=== PATIENT | female | born 1955 | race Caucasian/White ===

== ENCOUNTER → 2018-11-06 | Outpatient (CLI) | payer OTHER ==
[~2018-11-06] VITALS: Ht 160 cm; Wt 68.0 kg
[~2018-11-06] MED LIST: CLONAZEPAM2 MG PO; LISINOPRIL-HCT1 EAC1 PO; MEDROLDOSEPACK PO; MOBIC15 MG PO; OXYCODONE-ACET1 EACH PO; PRAVACHOL40 MG PO; QUETIAPINE FUM400 MG PO; UNICOMPLEX M TA1 TA1 PO; VITAMINC500 PO
--- NOTE | ~2018-11-06 | HPC ---
[facility] [address] [place] [address] PAIN MANAGEMENT CONSULTATION Name: MARIANO HEAD Room #: REG [facility].#: [id number] Admission: 11/06/18 Attend Phys: Lo Cohn MD Discharge: Date of : 57 Report #: [id number] THIS REPORT FOR: //name// CC: Lo Wheeler DO DATE OF SERVICE: 11/11/2018 CHIEF COMPLAINT: Back pain and left leg pain. HISTORY OF PRESENT ILLNESS: The patient is a 63-year-old female who has been referred to the pain clinic because of pain and discomfort involving her low back and pain radiating down her left side to her leg. The patient states she has had sciatic nerve pain in the past and this feels like a recurrence of that pain. She has had pain, which has waxed and waned over the past 2 years. Describes as a burning, hot pain on the lower portion of her back and that radiates down into her left leg with numbness, tingling and sensory changes. Pain is exacerbated by prolonged standing. Notes pain improves with change of position. The pain sometimes becomes problematic even at night and bothers her sleep. She describes it as continuous, steady, constant, burning, shooting, cramping, aching, gnawing, throbbing, pounding, stabbing with a very tender area. Rates it as a 10/10. The patient has not had back surgery. Denies any real changes to her bowel or bladder function. When the patient had this pain in the past it was about 12 years ago. She was told at that time that she had a bulging disk. At that time, she underwent an epidural steroid injection and noted improvement in her pain and discomfort. ALLERGIES: KEFLEX, CODEINE. CURRENT MEDICATIONS: Lisinopril 40 mg daily, Klonopin 2 mg t.i.d., pravastatin 40 mg, Seroquel, vitamin C, Unicomplex-M tablets, quetiapine 400 mg at bedtime, clonazepam 2 mg t.i.d., oxycodone 5/325 mg p.r.n., lisinopril/hydrochlorothiazide 20/12.5 mg. PAST MEDICAL HISTORY: Hypertension, colon problems, emotional problems. PAST SURGICAL HISTORY: Colon and uterus problems, in 1989. SOCIAL HISTORY: She is disabled, has not worked for the past 5-1/2 years. She is on disability. REVIEW OF SYSTEMS: Wears glasses, nausea and vomiting, frequent diarrhea, memory loss, nervousness, insomnia. LABORATORY DATA: MRI of the lumbar spine dated 04/30/2017: [address] [address] PAIN MANAGEMENT CONSULTATION Name: QING HEADErik Rivera Room #: REG [facility] M.R.#: [id number] Admission: 11/06/18 Attend Phys: Lo Cohn MD Discharge: Date of : 57 Report #: [id number] 1. L3-L4 normal disk height with mild circumferential disk bulge, which abuts the thecal sac anteriorly. There are bilateral foraminal components to the disk with mild bilateral facet and ligamentum flavum hypertrophy. The findings produce mild bilateral neural foraminal stenosis without significant central canal stenosis or nerve root compression identified. 2. L4-L5 normal disk height with mild circumferential disk bulge with which produced minimal flattening of the thecal sac anteriorly. Mild bilateral facet arthropathy without significant central canal stenosis. Neural foraminal stenosis or nerve root compression identified. 3. L5-S1 moderate disk height loss posteriorly with more mild disk space narrowing noted anteriorly at the L5-S1 level. Diffuse circumferential disk bulge is present, which abuts the thecal sac anteriorly with bilateral foraminal components to the disk bulge, which appeared to cause at least partial compression of the exiting L5 nerve roots bilaterally. Mild bilateral facet arthropathy is also noted. The findings in conjunction with the grade 1 anterolisthesis of L5 on S1 produced severe bilateral neural foraminal stenosis without significant central canal stenosis identified. PAIN CLINIC ASSESSMENT: 1. The patient is not being treated for osteoarthritis or rheumatoid arthritis. 2. Height 5 feet 3 inches, weight 150 pounds, BMI 26.6. 3. Vital Signs: Blood pressure 130/87, pulse 103, respiratory rate 16, room air saturation is 97%. 4. Pain intensity 10/10. 5. Fall risk. The patient has not fallen in the last 3 months. 6. Blood thinner: The patient is not on a blood thinning medication. 7. Hypertension. The patient has been treated for hypertension. 8. Opioid greater than 6 weeks. The patient has received medication from her previous physician. 9. Risk assessment tool. 10. Functional assessment tool. 11. Recreational drug use. The patient denies use of recreational drugs. 12. Tobacco: The patient smokes on occasion and has smoked less than 5 years, discussed the importance of smoking cessation. 13. Alcohol: The patient denies use of alcoholic beverages. PHYSICAL EXAMINATION: GENERAL: The patient is a well-developed, well-nourished white female. Appears her stated age. She is alert and oriented x 3. Her affect is appropriate. Speech is fluent. HEENT: Normocephalic, atraumatic. Extraocular eye muscles intact. Sclerae nonicteric. Mucous membranes are moist. The patient without adenopathy. LUNGS: Clear to auscultation. HEART: Regular rate. ABDOMEN: Nontender. Bowel sounds present. EXTREMITIES: Upper extremity muscle strength is judged to be 5/5 for the major [facility] [address] [place] [address] PAIN MANAGEMENT CONSULTATION Name: MARIANO HEAD Room #: REG [facility].#: [id number] Admission: 11/06/18 Attend Phys: Lo Cohn MD Discharge: Date of : 57 Report #: [id number] muscle groups in the upper extremity. The patient without significant scoliosis, kyphosis or lordosis. The patient has pain and discomfort, which radiates down into the posterior portion of her leg on the right with numbness, tingling, sensory changes and pain, which is consistent with sciatic nerve irritation. She has had this in the past. She was on the right in the past about 12 years ago. Now, it has become problematic in the left. She has MRI findings, which show pathology with nerve root abutment at L5 on the left as well as the right. She would like to proceed with an epidural steroid injection. IMPRESSION: 1. Hypertension. L5-S1/sciatic nerve root irritation. 2. Gastric/colon problems. 3. Emotional problems. RECOMMENDATIONS: We discussed treatment options with the patient. At this juncture, we will proceed with a conservative approach. The patient has been given a Medrol Dosepak to take in the interim. She will try this medication and note its efficacy. She has been using nonsteroidal anti-inflammatory medications over the counter. We will also try Medrol Dosepak. A script for these medications have been written. We will also petition the patient's insurance company in that she could undergo an epidural steroid injection to help curtail and decrease her suffering. We would like to thank you for letting us participate in her care. We hope she continues to improve. By: [id number] Lo Cohn MD /REINALDO
[2018-11-06 09:02] VITALS: BP 130/87
== END ==
LOC: PAIN 08:23
DX: M54.5 Low back pain (principal); G89.29 Other chronic pain; Z79.899 Other long term (current) drug therapy

== ENCOUNTER → 2018-11-20 | Outpatient (CLI) | payer OTHER ==
[~2018-11-20] VITALS: Ht 160 cm; Wt 71.0 kg
--- NOTE | ~2018-11-20 | HPC ---
[facility] [address] [place] [address] PAIN MANAGEMENT CONSULTATION Name: MARIANO HEAD Room #: REG [facility].#: [id number] Admission: 11/20/18 Attend Phys: Lo Cohn MD Discharge: Date of : 57 Report #: [id number] THIS REPORT FOR: //name// CC: Lo Wheeler DATE OF SERVICE: 11/20/2018 CHIEF COMPLAINT: Here for an epidural injection. HISTORY: The patient is a 63-year-old female who has been seen in the pain clinic because of pain and discomfort with pain that radiates down into her left side and into her leg. States that she has some sciatic pain. She has had pain similar to this in the past and noted improvement with epidural steroid injections. She is experiencing pain in the lower portion of her back that radiates down to the left leg with numbness, tingling and sensory changes. Notes that the pain is exacerbated with prolonged standing. Pain improves when she changes position. It has been problematic even at night and she finds it difficult to sleep. Rates her pain as a 10/10 today and has returned today for an epidural steroid injection. ALLERGIES: KEFLEX, CODEINE. MEDICATIONS: Lisinopril 40 mg, Klonopin 2 mg t.i.d., pravastatin 40 mg, Seroquel, vitamin C, Unicomplex-M tablets, quetiapine 400 mg at bedtime, clonazepam 2 mg t.i.d., oxycodone 5 mg p.o. q. 4-6 hours p.r.n., lisinopril/hydrochlorothiazide 20 mg/12.5 mg. PAIN CLINIC ASSESSMENT/PQRS: 1. The patient is not being treated for osteoarthritis or rheumatoid arthritis. 2. Height 5 feet 3 inches, weight 156 pounds, BMI is 27.7. 3. Vital signs: Blood pressure 124/83, pulse 104, respiratory rate 14, room air saturation 97%. 4. Pain intensity 09/09. 5. Fall risk. The patient has not fallen in the last 3 months. 6. Blood thinner. The patient is not on a blood thinning medication. 7. Hypertension. The patient has been treated for hypertension. 8. Opioids greater than 6 weeks. The patient receives her medication from one source. 9. Risk assessment tool, low for opioid use. 10. Functional assessment tool. 11. Recreational drug use. The patient denies use of recreational drugs. 12. Tobacco: The patient smokes 1-3 cigarettes per day. We discussed the benefits of smoking cessation with the patient. 13. Alcohol: The patient denies frequent use of alcoholic beverages. [address] [address] PAIN MANAGEMENT CONSULTATION Name: MARIANO HEAD [id number] Admission: 11/20/18 Attend Phys: Lo Cohn MD Discharge: Date of : 57 Report #: [id number] PHYSICAL EXAMINATION: GENERAL: The patient is a well-developed, well-nourished white female. Appears her stated age. She is alert and oriented x 3. Affect is appropriate. Speech is fluent. HEENT: Normocephalic, atraumatic. Extraocular eye muscles intact. Sclerae nonicteric. Mucous membranes are moist. NECK: Without adenopathy or JVD. LUNGS: Clear to auscultation. HEART: Regular rate. ABDOMEN: Nontender. Bowel sounds present. EXTREMITIES: Upper extremity muscle strength is judged to be 5/5 in the upper extremities. Deep tendon reflexes within normal limits. Lower extremity muscle strength judged to be 5/5 for the major muscle groups. The patient has some pain and discomfort in the lower portion of her back with pain radiating down into her L5-S1 nerve root area with signs of irritation along the left leg. The patient is without significant scoliosis, kyphosis or lordosis. IMPRESSION: 1. L5-S1 nerve root irritation with radiculopathy. 2. Hypertension. 3. Gastric/colon problems. 4. Emotional problems. RECOMMENDATIONS: We discussed treatment options with the patient. Risks and benefits of an epidural steroid injection were discussed. They include but are not limited to infection, worsening of pain, no improvement in pain, bleeding, worsening of discomfort with possibility of nerve root irritation and paralysis. The patient elects to proceed. PROCEDURE NOTE: The patient was placed in the prone position. She was assisted in getting on the examination table. A pillow was placed under the abdomen to bolster and improve positioning. A 0.25% bupivacaine was injected at the L5-S1 area. This area has already been sterilely prepped with Betadine and infiltrated with 1% lidocaine. A 17-gauge Tuohy with loss of resistance technique using a midline approach directed in the left paramedian approach was undertaken. Aspiration was negative. A total of 80 mg Depo-Medrol, 40 mg triamcinolone and 2 mL of 0.25% bupivacaine was infiltrated. The patient's pain decreased to 0 at the time of discharge. She remained in the pain clinic for an appropriate amount of time. She will follow up in the future as needed. We would like to thank you for letting us participate in her care. We hope she continues to improve. By: [id number] Lo Cohn MD /mariam
[2018-11-20 09:19] VITALS: BP 124/83
== END | disposition home or self-care (01) ==
LOC: PAIN 08:41
DX: M54.16 Radiculopathy, lumbar region (principal); G89.29 Other chronic pain; I10 Essential (primary) hypertension; K31.89 Other diseases of stomach and duodenum; F17.210 Nicotine dependence, cigarettes, uncomplicated; F98.9 Unspecified behavioral and emotional disorders with onset usually occurring in childhood and adolescence; Z88.8 Allergy status to other drugs, medicaments and biological substances; Z79.899 Other long term (current) drug therapy; Z79.891 Long term (current) use of opiate analgesic; Z98.890 Other specified postprocedural states

== ENCOUNTER → 2019-01-29 | Outpatient (CLI) | payer OTHER ==
[~2019-01-29] VITALS: Ht 160 cm; Wt 72.6 kg
[~2019-01-29] MED LIST changes: +GARLIC1 EACH PO; -OXYCODONE-ACET1 EACH PO; +OXYCODONE-APAP1 EAC6 PO; -QUETIAPINE FUM400 MG PO; +SEROQUEL XR 20200 MG PO
[2019-01-29 08:11] VITALS: BP 145/73
--- NOTE | 2019-01-29 08:21 | NUR ---
Pain Clinic Assessment: 1. History of Osteoarthritis: Not Applicable History of Rheumatoid Arthritis: Not Applicable 2. Height: 5 ft. 3 in. 160.0 cm. Weight: 160.0 lb. oz. 72.576 kg. Patient's BMI: 28.4 3. Vital Signs: BP: 145/73 Pulse: 102 Resp: 16 Temp: 02 Sat: 94 ECG Mon: 4. Pain Intensity: 10 5. Fall Risk: Dizziness: N Needs help standing or walking: N Fallen in the last 3 months: N Fall risk comments: 6. Patient on Blood Thinner: None 7. History of Hypertension: Y 8. Opioid Therapy greater than 6 weeks: Y Opiate Contract Signed: 9. Risk Assessment Tool Provided: 9-HIGH 10. Functional Assessment Tool: 70/70 11. Recreational Drug Use: Past greater than 3 mos Drug Type: Tobacco Use: Current Some Day Smoker Tobacco Type: Cigarettes Amount or Packs/day: 1 CIGARETT How Many Years: Alcohol Use: Past use Frequency: Quant:
--- NOTE | 2019-02-16 11:24 | HPC ---
[facility] [place] [address] PAIN MANAGEMENT CONSULTATION Name: SONIDOMARIANO M Room #: PRE [facility] M.R.#: [id number] Admission: ������������������ Attend Phys: Lo Cohn MD Discharge: ������������������ Date of : 57 Report #: [id number] THIS REPORT FOR: //name// CC: Lo Wheeler DATE OF SERVICE: 01/29/2019 CHIEF COMPLAINT: Low back pain is going down into the right buttocks and down to the right leg into the calf. HISTORY: The patient is a 63-year-old female who has been followed in the Pain Clinic in the past because of lumbar radiculopathy. She has undergone epidural steroid injections and gleaned benefits from these. She returns today indicating that she is having pain that is radiating down into her left and right leg. Notes some numbness and tingling as a result of this. Note some sensory changes. She has undergone epidural steroid injection in the past and gleaned benefits from it. She has returned today with a desire to undergo an epidural steroid injection. ALLERGIES: KEFLEX, CODEINE. CURRENT MEDICATIONS: Vitamin C 500 mg, total 1000 mg daily, multivitamins Unicomplex-M tablet, quetiapine 400 mg, 200 mg at bedtime, Prevacid 40 mg, clonazepam 2 mg t.i.d., oxycodone 5/325 p.r.n., lisinopril/hydrochlorothiazide 20/12.5. PAIN CLINIC ASSESSMENT/PQRS: 1. The patient is not being treated for osteoarthritis or rheumatoid arthritis. 2. Height 5 feet 3 inches, weight 160 pounds, BMI is 28.4. 3. Vital signs: Blood pressure 145/73, pulse 102, respiratory rate 16, room air saturation is 94. 4. Pain intensity, 10/10. 5. Fall risk. The patient has not fallen in the last 3 months. 6. Blood thinner. The patient is not on a blood thinning medication. 7. Hypertension. The patient is being treated for hypertension. 8. Opioids greater than 6 weeks. The patient is receiving opioid medication from one source. 9. Risk assessment tool, 9/high. 10. Functional assessment tool, 70/70. 11. Recreational drug use. The patient denies use of recreational drugs. 12. Tobacco: The patient currently smokes daily. We discussed the benefits of smoking cessation. 13. Alcohol: The patient has used alcoholic beverages in the past. PHYSICAL EXAMINATION: [facility] [address] [place] [address] PAIN MANAGEMENT CONSULTATION Name: SONIDOMARIANO M Room #: PRE [facility]#: [id number] Admission: ������������������ Attend Phys: Lo Cohn MD Discharge: ������������������ Date of : 57 Report #: [id number] GENERAL: The patient is a well-developed, well-nourished white female. Appears her stated age. She is alert and oriented x 3. Affect is appropriate. Speech is fluent. HEENT: Normocephalic, atraumatic. Extraocular eye muscles intact. Sclerae nonicteric. Mucous membranes are moist. NECK: Without adenopathy or JVD. LUNGS: Clear to auscultation. HEART: Regular rate. ABDOMEN: Nontender. Bowel sounds present. EXTREMITIES: Upper extremity muscle strength is judged to be 5/5 for the major muscle groups in the upper extremity. Reflexes are within normal limits. Lower extremity muscle strength is judged to be 5-/5 for the major muscle groups in the lower extremity. The patient is having pain and discomfort radiating down the L5-S1 nerve root area on the left as well as the right leg. The patient is without significant scoliosis, kyphosis or lordosis. IMPRESSION: 1. L5-S1 nerve root irritation with radiculopathy on the left as well as the right. 2. Hypertension. 3. Gastric/colon problems. 4. Emotional problems. RECOMMENDATIONS: We discussed treatment options with the patient. Risks and benefits of an epidural steroid injection were again discussed. The possible complication of the procedure continue to be possibility of infection, worsening pain, no improvement in pain, nerve damage and paralysis. Review of the patient's past x-ray shows significant pars defects. There is advanced spondylosis and a grade 2 anterolisthesis. We will have the patient undergo flexion and extension films. She has been sent to the Radiology Department. Radiology report dated, 01/29/2019 shows: Lumbar spine series, four views with flexion and extension. Comparison, none available. FINDINGS: The vertebral body heights are maintained. No compression fracture is seen. L5-S1 bilateral pars defects are present with a grade 2 anterolisthesis measuring 18 mm. There is complete or near complete loss of disk space with apposing endplate sclerosis. No motion abnormality is detected between flexion and extension. No obvious destructive bone lesions are seen. The other intervertebral disk spaces are relatively well preserved and maintained normal alignment. The facets are grossly unremarkable. IMPRESSION: L5-S1 bilateral pars defects with advanced spondylosis and grade 2 anterolisthesis. RECOMMENDATIONS: We will have the patient to return to the Pain Clinic. Possibility of an epidural steroid injection will be entertained should the [address] [place] [address] PAIN MANAGEMENT CONSULTATION Name: MARIANO HEAD Room #: [facility]#: [id number] Admission: ������������������ Attend Phys: Lo Cohn MD Discharge: ������������������ Date of : 57 Report #: [id number] patient elected to proceed. We would like to thank you for letting us participate in her care. We hope she continues to improve. ��������������������������������������������� <ELECTRONICALLY SIGNED> ���������������������������������������� By: Lo Cohn MD ��������������������������������������������� 02/16/19 [id number] Lo Cohn MD /nt
== END ==
LOC: PAIN 01-13 13:23
DX: M47.27 Other spondylosis with radiculopathy, lumbosacral region (principal); M43.16 Spondylolisthesis, lumbar region; I10 Essential (primary) hypertension; F98.9 Unspecified behavioral and emotional disorders with onset usually occurring in childhood and adolescence; K92.9 Disease of digestive system, unspecified; Z79.899 Other long term (current) drug therapy

== ENCOUNTER → 2019-02-17 | Outpatient (CLI) | payer OTHER ==
[~2019-02-17] VITALS: Ht 160 cm; Wt 73.3 kg
[2019-02-17 09:22] VITALS: BP 132/78
--- NOTE | 2019-02-17 09:23 | NUR ---
Pain Clinic Assessment: 1. History of Osteoarthritis: Not Applicable History of Rheumatoid Arthritis: Not Applicable 2. Height: 5 ft. 3 in. 160.0 cm. Weight: 161.6 lb. oz. 73.301 kg. Patient's BMI: 28.6 3. Vital Signs: BP: 132/78 Pulse: 111 Resp: 16 Temp: 02 Sat: 96 ECG Mon: 4. Pain Intensity: 10 5. Fall Risk: Dizziness: N Needs help standing or walking: N Fallen in the last 3 months: N Fall risk comments: 6. Patient on Blood Thinner: None 7. History of Hypertension: Y 8. Opioid Therapy greater than 6 weeks: Y Opiate Contract Signed: 9. Risk Assessment Tool Provided: 9-HIGH 10. Functional Assessment Tool: 70/70 11. Recreational Drug Use: Past greater than 3 mos Drug Type: Tobacco Use: Current Some Day Smoker Tobacco Type: Amount or Packs/day: How Many Years: Alcohol Use: Past use Frequency: Quant:
--- NOTE | 2019-02-24 08:28 | HPC ---
[facility] [place] [address] PAIN MANAGEMENT CONSULTATION Name: MARIANO HEAD Room #: REG [facility]..#: [id number] Admission: 02/17/19 ������������������ Attend Phys: Lo Cohn MD Discharge: ������������������ Date of : 57 Report #: [id number] THIS REPORT FOR: //name// CC: Lo Wheeler DATE OF SERVICE: 02/17/2019 CHIEF COMPLAINT: Pain in the low back area with pain down into the right leg. Left leg is better but still uncomfortable. HISTORY: The patient is a 63-year-old female who has been seen in the Pain Clinic because of lumbar radiculopathy. As you may recall, she has pain and discomfort in the lower portion of her back and has pain that radiates down into her legs. Pain in the left leg is less problematic today. Pain in the right leg continues to be problematic. The patient had an x-ray of her low back area. It shows grade 2 spondylolisthesis of L5 on S1. She does not have movement in the low back area with flexion and extension. She states that she is having some difficulty getting in and out of bed because of the pain. She has returned today with the desire to undergo another epidural steroid injection with the hope that her pain would improve. She said no complication from the past injection, did note some improvement, and would like to have more improvement. ALLERGIES: KEFLEX, CODEINE. CURRENT MEDICATIONS: Vitamin C 500 mg - a total of 1000 mg daily, multivitamins Unicomplex-M tablet, quetiapine 400 mg - 200 mg at bedtime, Prevacid 40 mg, clonazepam 2 mg t.i.d., oxycodone 5/325s p.r.n., lisinopril/hydrochlorothiazide 20/12.5. PAIN CLINIC ASSESSMENT/PQRS: 1. The patient is not being treated for osteoarthritis. She has some arthritic changes in her low back with grade 2 spondylolisthesis of the lumbar area. The patient is not being treated for rheumatoid arthritis. 2. Height 5 feet 3 inches, weight 161 pounds, BMI is 28.6. 3. Vital signs: Blood pressure 132/78, pulse 111, respiratory rate 16, room air saturation 96%. 4. Pain intensity: 09/09. 5. Fall risk: The patient has not fallen in the last 3 months. 6. Blood thinner: The patient is not on a blood thinning medication. 7. Hypertension: The patient is being treated for hypertension. 8. Opioids greater than 6 weeks: The patient is not on opioid medication on a long-term basis. 9. Risk assessment tool: High for opioid use. 10. Functional assessment tool: 70/70. 11. Recreational drug use: The patient denies use of recreational drugs. [address] [address] PAIN MANAGEMENT CONSULTATION Name: SONIDOMARIANO Room #: REG [facility].#: [id number] Admission: 02/17/19 ������������������ Attend Phys: Lo Cohn MD Discharge: ������������������ Date of : 57 Report #: [id number] 12. Tobacco: The patient denies use of tobacco. 13. Alcohol: The patient denies frequent use of alcoholic beverages. PHYSICAL EXAMINATION: GENERAL: The patient is a well-developed, well-nourished white female. She appears her stated age. She is alert and oriented x 3. She is nervous and appears somewhat fidgety. This was the same appearance that she had when we met her initially. HEENT: Normocephalic, atraumatic. Extraocular eye muscles intact. Sclerae nonicteric. Mucous membranes are moist. NECK: Without adenopathy or JVD. LUNGS: Clear to auscultation, without rhonchi. HEART: Regular rate. ABDOMEN: Nontender. Bowel sounds present. MUSCULOSKELETAL: Upper extremity muscle strength is judged to be 5/5 for the major muscle groups in the upper extremities. Reflexes are within normal limits. Lower extremity muscle strength is judged to be 4+/5 for the major muscle groups in the lower extremities. The patient goes from a sitting to a standing position using her hands. She does walk in a forward-leaning position. She complains of pain and discomfort in the lower portion of her back. She complains of pain and discomfort that is radiating down the L5-S1 dermatomal distribution on the right. She has less pain than she did on the left, which was problematic at the last visit. The patient is without significant scoliosis or kyphosis. ASSESSMENT: 1. L5-S1 nerve root irritation with radiculopathy on the left as well as on the right. 2. Hypertension. 3. Gastric/colon problems. 4. Emotional problems. RECOMMENDATIONS: We discussed treatment options with the patient. Risks and benefits of an epidural steroid injection were again reviewed. They include but are not limited to infection, worsening of pain, bleeding, nerve damage, spinal headache, paralysis. The patient elects to proceed. PROCEDURE NOTE: The patient was assisted in getting on the examination table in the procedure area. Her back was sterilely prepped with a Betadine solution. Fluoroscopy using anterior, posterior as well as lateral viewing were implemented. The patient's back was sterilely prepped at the L5-S1 interspace. A 25-gauge needle was then advanced into this area and localized using 0.25% bupivacaine. A 17-gauge Tuohy at the L5-S1 area was used and advanced into the epidural space. There was no CSF, heme or paresthesia. A total of 80 mg Depo-Medrol, 40 mg triamcinolone and 2 mL of 0.25% bupivacaine was injected. The patient's fluoroscopy time was 4 seconds. She remained in the Pain Clinic [address] [address] PAIN MANAGEMENT CONSULTATION Name: MARIANO HEAD Room #: REG CLI [facility]#: [id number] Admission: 02/17/19 ������������������ Attend Phys: Lo Cohn MD Discharge: ������������������ Date of : 57 Report #: [id number] for an appropriate amount of time. She will follow up in the future as needed. We would like to thank you for letting us participate in her care. We hope she continues to improve. ��������������������������������������������� <ELECTRONICALLY SIGNED> ���������������������������������������� By: Lo Cohn MD ��������������������������������������������� 02/24/19 0828 1757 0329 Lo Cohn MD /nt
== END | disposition home or self-care (01) ==
LOC: PAIN 01-08 10:28
DX: M54.16 Radiculopathy, lumbar region (principal); G89.29 Other chronic pain; I10 Essential (primary) hypertension; K92.9 Disease of digestive system, unspecified; F98.9 Unspecified behavioral and emotional disorders with onset usually occurring in childhood and adolescence; Z88.8 Allergy status to other drugs, medicaments and biological substances; Z79.899 Other long term (current) drug therapy; Z79.891 Long term (current) use of opiate analgesic; Z98.890 Other specified postprocedural states

== ENCOUNTER → 2019-08-25 | Outpatient (CLI) | payer OTHER ==
[~2019-08-25] VITALS: Ht 160 cm; Wt 65.1 kg
[~2019-08-25] MED LIST changes: +DEPAKOTE125 MG PO
[2019-08-25 08:23] VITALS: BP 135/75
--- NOTE | 2019-08-25 08:25 | NUR ---
Pain Clinic Assessment: 1. History of Osteoarthritis: Not Applicable History of Rheumatoid Arthritis: Not Applicable 2. Height: 5 ft. 3 in. 160.0 cm. Weight: 143.6 lb. oz. 65.136 kg. Patient's BMI: 25.4 3. Vital Signs: BP: 135/75 Pulse: 96 Resp: Temp: 02 Sat: 98 ECG Mon: 4. Pain Intensity: 10 5. Fall Risk: Dizziness: N Needs help standing or walking: N Fallen in the last 3 months: N Fall risk comments: 6. Patient on Blood Thinner: None 7. History of Hypertension: Y 8. Opioid Therapy greater than 6 weeks: Y Opiate Contract Signed: 9. Risk Assessment Tool Provided: 9-HIGH 10. Functional Assessment Tool: 70/70 11. Recreational Drug Use: Past greater than 3 mos Drug Type: Tobacco Use: Former Smoker Tobacco Type: Amount or Packs/day: How Many Years: Alcohol Use: Past use Frequency: Quant:
--- NOTE | 2019-08-27 15:10 | HPC ---
[facility] [address] [address] PAIN MANAGEMENT CONSULTATION Name: SONIDOMARIANO M [id number] Admission: 08/25/19 Attend Phys: Lo Cohn MD Discharge: Date of : 57 Report #: [id number] THIS REPORT FOR: //name// CC: Lo Wheeler DATE OF SERVICE: 08/25/2019 CHIEF COMPLAINT: "Has had a return of the pain down my right leg." HISTORY: The patient is a 63-year-old female who has been seen in the pain clinic because of lumbar radiculopathy. She has undergone epidural steroid injections in the past and gleaned benefits from these. She returns today indicating that her pain was doing reasonably well since the last injection in January of this year. She has noted a return of pain and discomfort in the lower portion of her back. Pain is radiating down into the left and right leg. Pain is most problematic in the right side. Notes that her leg "goes numb." She has been using Seroquel. States that the Seroquel seemed to be causing her sinus and mouth to be dry. She has been placed on a new medication. She thinks it is Depakote. She has used OxyContin sporadically to help with her pain control. She has undergone epidural steroid injections in the L5-S1 area. She does have grade 2 spondylolisthesis of L5 on S1. At this point, the patient feels that she might need additional treatment. We will consider an MRI of her low back area to evaluate the changes, which are occurring. She is having difficulty in doing activities of daily living because of the pain. It is infringing upon her daily life. ALLERGIES: KEFLEX, CODEINE. CURRENT MEDICATIONS: Vitamin C 500 mg total of 1000 mg daily, multivitamins, Unicomplex-M tablets, Prevacid 40 mg, clonazepam 2 mg t.i.d., oxycodone 5/325 p.r.n., lisinopril/hydrochlorothiazide 20/12.5, pravastatin 40 mg. The patient thinks she is taking Depakote to help with his mood stabilization. PAIN CLINIC ASSESSMENT AND PQRS: 1. The patient is not being treated for osteoarthritis. She does have some arthritic changes in her low back with grade 2 spondylolisthesis of the lumbar area. The patient is not being treated for rheumatoid arthritis. 2. Height 5 feet 3 inches, weight 143 pounds, BMI is 25. 3. Vital Signs: Blood pressure 135/70, pulse 96, respiratory rate 16, room air saturation is 98%. 4. Pain intensity, 10/10. 5. Fall risk. The patient has not fallen in the last 3 months. 6. Blood thinner. The patient is not on a blood thinning medication. 7. Hypertension. The patient [place] [address] PAIN MANAGEMENT CONSULTATION Name: MARIANO HEAD [id number] Admission: 08/25/19 Attend Phys: Lo Cohn MD Discharge: Date of : 57 Report #: [id number] 8. Opioids greater than 6 weeks. 9. Risk assessment tool, high for opioid use. 10. Functional assessment tool, 70/70. 11. Recreational drug use. The patient denies use of recreational drugs. 12. Tobacco. 13. Alcohol. The patient denies frequent use of alcoholic beverages. PHYSICAL EXAMINATION: GENERAL: The patient is a well-developed, well-nourished, white female. She appears somewhat nervous. This is similar to the nerve at this level we have seen in the past visits. HEENT: Normocephalic, atraumatic. Extraocular eye muscles intact. Sclerae nonicteric. Mucous membranes are moist. NECK: Without adenopathy or JVD. LUNGS: Clear to auscultation without rhonchi. HEART: Regular rate. ABDOMEN: Nontender. Bowel sounds present. MUSCULOSKELETAL: Upper extremity muscle strength judged to be 5/5 for the major muscle groups in the upper extremity. The patient has lower extremity muscle strength judged to be 4+/5 for the major muscle groups in the lower extremity. The patient complains of pain and discomfort on the right side. Notes that the pain radiates down to her right leg. Feels that the leg does experience some numbness. Has had left leg discomfort, but less problematic than the right. ASSESSMENT: 1. History of L5-S1 nerve root irritation with lumbar radiculopathy and grade 2 spondylolisthesis at L5-S1. 2. Hypertension. 3. Gastric/colon problems. 4. Emotional problems. RECOMMENDATIONS: We discussed treatment options with the patient. Possibility of an epidural steroid injection was discussed. We will have the patient consider an MRI of the lumbar spine. Hopefully, this will give us more information in regards to what is actually going on at this juncture. The patient will return to the pain clinic after the MRI with the possibility of undergoing an epidural steroid injection. She would like to have an information on her condition. We explained to the patient that she should go to the Medical Records Department. They will then provided her with medical record information, which she has sought. [address] [address] PAIN MANAGEMENT CONSULTATION Name: MARIANO HEAD Room #: REG [facility]..#: [id number] Admission: 08/25/19 Attend Phys: Lo Cohn MD Discharge: Date of : 57 Report #: [id number] We would like to thank you for letting us participate in her care. We hope she continues to improve. <ELECTRONICALLY SIGNED> By: Lo Cohn MD 08/27/19 1510 1850 0212 Lo Cohn MD /PMT
== END ==
LOC: PAIN 06:53
DX: M43.17 Spondylolisthesis, lumbosacral region (principal); M54.16 Radiculopathy, lumbar region; M79.604 Pain in right leg; I10 Essential (primary) hypertension

== ENCOUNTER → 2019-09-07 | Outpatient (CLI) | payer OTHER | LOC: MRI 08:54 | DX: M43.17 Spondylolisthesis, lumbosacral region (principal); M48.07 Spinal stenosis, lumbosacral region; M47.27 Other spondylosis with radiculopathy, lumbosacral region ==

== ENCOUNTER → 2019-09-10 | Outpatient (CLI) | payer OTHER ==
[~2019-09-10] VITALS: Ht 160 cm; Wt 65.2 kg
[2019-09-10 09:15] VITALS: BP 114/73
--- NOTE | 2019-09-10 09:16 | NUR ---
Pain Clinic Assessment: 1. History of Osteoarthritis: Not Applicable History of Rheumatoid Arthritis: Not Applicable 2. Height: 5 ft. 3 in. 160.0 cm. Weight: 143.8 lb. oz. 65.227 kg. Patient's BMI: 25.5 3. Vital Signs: BP: 114/73 Pulse: 71 Resp: 18 Temp: 02 Sat: 99 ECG Mon: 4. Pain Intensity: 10 5. Fall Risk: Dizziness: N Needs help standing or walking: N Fallen in the last 3 months: N Fall risk comments: 6. Patient on Blood Thinner: None 7. History of Hypertension: Y 8. Opioid Therapy greater than 6 weeks: Y Opiate Contract Signed: 9. Risk Assessment Tool Provided: 9-HIGH 10. Functional Assessment Tool: 70/70 11. Recreational Drug Use: Past greater than 3 mos Drug Type: Tobacco Use: Former Smoker Tobacco Type: Amount or Packs/day: How Many Years: Alcohol Use: Past use Frequency: Quant:
--- NOTE | 2019-09-22 09:44 | HPC ---
[facility] [address] [place] [address] PAIN MANAGEMENT CONSULTATION Name: MARIANO HEAD Room #: REG [facility]..#: [id number] Admission: 09/10/19 Attend Phys: Lo Cohn MD Discharge: Date of : 57 Report #: [id number] THIS REPORT FOR: //name// CC: Troy Wheeler DATE OF SERVICE: 09/10/2019 CHIEF COMPLAINT: Back and leg pain. HISTORY: The patient is a 63-year-old female who has been seen in the pain clinic because of lumbar radiculopathy. She continues to have pain, which radiates down into her legs. Right leg is most problematic. She does notice an improvement after the epidural steroid injection, but still has pain that continues to be problematic and makes activities of daily living difficult. States her leg continues to "go numb." Has used OxyContin on occasion to help control the pain. She has recently undergone an MRI. She has been found to have grade 2 spondylolisthesis of L5 on S1. She recently had an MRI, which corroborated that finding. Also, has some bilateral SI joint pain and discomfort. The patient has noted a worsening of her pain and discomfort over the past year. Feels that she is suffering a worsening of her depression because of this pain. Notes that there is numbness and tingling in both feet. Rates her pain as a 10/10 today. ALLERGIES: KEFLEX, CODEINE. CURRENT MEDICATIONS: Vitamin C 500 mg total of 1000 mg daily, multivitamins, Unicomplex-M tablets, Prevacid 40 mg, clonazepam 2 mg t.i.d., oxycodone 5/325 p.r.n., lisinopril/hydrochlorothiazide 20/12.5, and pravastatin 40 mg. The patient takes the Depakote as a mood stabilizer. PAIN CLINIC ASSESSMENT AND PQRS: 1. The patient is not being treated for osteoarthritis. She does have some arthritic changes in her low back with grade 2 spondylolisthesis of the lumbar area. The patient is not being treated for rheumatoid arthritis. 2. Height 5 feet 3 inches, weight 143 pounds, BMI is 25.5. 3. Vital signs: Blood pressure 114/73, pulse 70, respiratory rate is 18, room air saturation 99. 4. Pain intensity 10/10. 5. Fall history: The patient has not fallen in the last month. 6. Blood thinner. The patient is not on a blood thinning medication. 7. Hypertension. The patient is being treated for hypertension. 8. Opioids greater than 6 weeks. The patient received medication of hydrocodone to help decrease her pain. 9. Risk assessment tool high for opioid use. [address] [address] PAIN MANAGEMENT CONSULTATION Name: MARIANO HEAD Room #: REG CLI [facility]#: [id number] Admission: 09/10/19 Attend Phys: Lo Cohn MD Discharge: Date of : 57 Report #: [id number] 10. Functional assessment tool, 70/70. 11. Recreational drug use. The patient denies recreational drugs. 12. Tobacco: The patient is a former smoker. 13. Alcohol. The patient denies frequent use of alcoholic beverages. PHYSICAL EXAMINATION: GENERAL: The patient is a well-developed, well-nourished white female. Appears her stated age. She is alert and oriented x 3. Her affect is appropriate. Speech is fluent. HEENT: Normocephalic, atraumatic. Extraocular eye muscles intact. Sclerae nonicteric. Mucous membranes are moist. The patient has a somewhat nervous ____. This has been consistent to each visit we had with her. NECK: Without adenopathy or JVD. LUNGS: Clear to auscultation without rhonchi or rales. HEART: Regular rate. ABDOMEN: Nontender. Bowel sounds present. MUSCULOSKELETAL: Upper extremity muscle strength judged to be 5/5 for the major muscle groups in the upper extremity. The patient has some pain and discomfort in the lower portion of her back. She walks with an antalgic gait. Muscle strength to the lower extremity 4+/5 for the major muscle groups in the lower extremity. The patient has pain and discomfort that radiates down to the right side as well as the left side. She does complain of some numbness and tingling down into her feet. IMPRESSION: 1. Lumbar radiculopathy with MRI findings of a grade 2 spondylolisthesis of L5-S1. 2. Hypertension. 3. Gastric/colon problems. 4. Emotional problems. RECOMMENDATIONS: We discussed possible complications with the patient. She would like to proceed at this point with another epidural steroid injection with the hope that this would help to curtail and decrease her pain. We have discussed the possible complications, which could include but are not limited to infection, worsening pain, no improvement in pain, nerve damage, spinal headache, muscle soreness, and bleeding. The patient elects to proceed. PROCEDURE NOTE: The patient was taken to the procedure area. She was then assisted in getting on the examination table. Her back was sterilely prepped with a Betadine solution at L5-S1. Aspiration was negative. This area had been infiltrated with a 25-gauge needle and 0.25% bupivacaine to numb the area. There was no CSF, heme, or paresthesia with the 17-gauge Tuohy. A total of 80 mg Depo-Medrol, 40 mg triamcinolone and 2 mL of 0.25% bupivacaine was injected. The patient tolerated the procedure well. There were no complications. She will follow up in the near future. [facility] [place] [address] PAIN MANAGEMENT CONSULTATION Name: SONIDOMARIANO M Room #: REG [facility]#: [id number] Admission: 09/10/19 Attend Phys: Lo Cohn MD Discharge: Date of : 57 Report #: [id number] The patient feels that her pain continues to be problematic. At this juncture, if her pain continues to be problematic, she will follow up with Dr. Troy Scott and his associates for evaluation as to whether or not the patient might benefit from surgery. We would like to thank you for letting us participate in her care. We hope she continues to improve. <ELECTRONICALLY SIGNED> By: Lo Cohn MD 09/22/19 0944 1625 0425 Lo Cohn MD /nt
== END | disposition home or self-care (01) ==
LOC: PAIN 06:37
DX: M54.16 Radiculopathy, lumbar region (principal); M43.17 Spondylolisthesis, lumbosacral region; G89.29 Other chronic pain; I10 Essential (primary) hypertension; Z98.890 Other specified postprocedural states; Z79.899 Other long term (current) drug therapy; Z88.8 Allergy status to other drugs, medicaments and biological substances; Z79.891 Long term (current) use of opiate analgesic